=== PATIENT | male | born 1990 | race African-American/Black ===

== ENCOUNTER 2024-05-16 20:54 | Emergency (ER) | payer MEDICAID, OTHER ==
[~2024-05-16] VITALS: Ht 188 cm; Wt 90.0 kg
[2024-05-16 21:06] VITALS: BP 114/60; PULSE 86; RESP 14; TEMP 36.9; O2SAT 99
== END 2024-05-16 22:40 | disposition home or self-care (01) ==
LOC: ER 20:54
DX: Z00.00 Encounter for general adult medical examination without abnormal findings (principal); Z86.59 Personal history of other mental and behavioral disorders
CPT/HCPCS: 71045; 99283